=== PATIENT | male | born 1965 | race Two or more races ===

== ENCOUNTER 2024-06-30 05:28 | Emergency (ER) | payer MEDICAID, OTHER ==
[~2024-06-30] VITALS: Ht 175.3 cm; Wt 82.1 kg
[2024-06-30 06:34] VITALS: BP 150/84; PULSE 90; RESP 18; TEMP 98; O2SAT 96
[2024-06-30] MEDS: cefTRIAXone SOD 1,000 MG VL IM ONE (06:48)
[2024-06-30] MEDS: methylPREDNISolone SOD SUCC 125 MG/2 ML VL IM ONE (06:49)
[2024-06-30] MEDS: LIDOCAINE VISCOUS 2% 15ML UD MT ONE (06:49)
[2024-06-30] MEDS ORDERED: PRED20TA2 PO (07:05)
[2024-06-30] MEDS ORDERED: LIDO2SOL26 MT (07:05)
== END 2024-06-30 07:10 | disposition home or self-care (01) ==
LOC: ER 05:28
DX: K12.2 Cellulitis and abscess of mouth (principal); J03.90 Acute tonsillitis, unspecified; F17.210 Nicotine dependence, cigarettes, uncomplicated; Z79.899 Other long term (current) drug therapy
CPT/HCPCS: 96372; 99284; J0696; J2919